=== PATIENT | male | born 1935 | race Asian ===

== ENCOUNTER 2020-10-14 11:26 | Emergency (ER) | payer OTHER, MEDICAID, SELFPAY ==
[2020-10-14 11:30] VITALS: BP_SYST 111
--- NOTE | 2020-10-14 11:30 | NUR ---
BROUGHT IN BY [facility], TRIAGED IN RIG AND AWAITING ER BED. MEDICS WITH PT.
--- NOTE | 2020-10-14 12:10 | NUR ---
DR LORD EVALUATING PT IN RIG
[2020-10-14 12:31] VITALS: BP_SYST 102
--- NOTE | 2020-10-14 12:32 | NUR ---
Patient given written and verbal discharge instructions and verbalizes understanding. ER MD discussed with patient the results and treatment provided. Patient in stable condition. ID arm band removed. Rx of NONE given. Patient educated on pain management and to follow up with PMD. Pain Scale 0/10. Opportunity for questions provided and answered. Medication side effect fact sheet provided.
== END 2020-10-14 12:31 | disposition home or self-care (01) ==
LOC: SED 11:26
DX: R09.02 Hypoxemia (principal); I10 Essential (primary) hypertension; E11.9 Type 2 diabetes mellitus without complications; N28.9 Disorder of kidney and ureter, unspecified
CPT/HCPCS: 99283